=== PATIENT | female | born 1970 | race Asian ===

== ENCOUNTER 2021-08-16 06:13 | Day surgery (SDC) | payer OTHER ==
[~2021-08-16] VITALS: Ht 165.1 cm; Wt 53.3 kg
[2021-08-16] VITALS (8 sets, daily range): BP systolic 114–131; BP diastolic 57–82
[~2021-08-16 06:13] MED LIST: ACETAMINOPHEN *IV* 1,000 MG IV ONE; ESTR1TAB PO; GABAPENTIN 300 MG CAP PO ONE; LR 1,000 ML IV ONE; MELO15TA28 PO; PROG1CAP8 PO; PROT0.1O TOP; TRIA25CR TOP; ceFAZolin SOD 2 GM in IV 1 EA IV ONE
[2021-08-16 06:42] LABS: HEMATOCRIT 40.6 % (36.0-47.0); HEMOGLOBIN 13.5 g/dl (12.0-15.5); MEAN CORPUSCULAR HEMOGLOBIN 32.1 pg (27.0-33.0); MEAN CORPUSCULAR HGB CONC 33.3 g/dl (32.0-36.5); MEAN CORPUSCULAR VOLUME 96.4 fl (80.0-96.0); PLATELET COUNT, AUTOMATED 231 10^3/uL (150-450); RED BLOOD COUNT 4.21 10^6/uL (4.00-5.40); WHITE BLOOD COUNT 4.9 10^3/uL (4.0-10.0)
[2021-08-16 06:59] LABS: ALBUMIN 3.7 GM/DL (3.2-5.2); BLOOD UREA NITROGEN 14 MG/DL (7-18); CALCIUM LEVEL 9.3 MG/DL (8.5-10.1); CARBON DIOXIDE LEVEL 28 MEQ/L (21-32); CHLORIDE LEVEL 108 MEQ/L (98-107); CREATININE FOR GFR 0.75 MG/DL (0.55-1.30); GLOMERULAR FILTRATION RATE > 60.0 (>51); GLUCOSE, FASTING 92 MG/DL (70-100); PHOSPHORUS LEVEL 3.3 MG/DL (2.5-4.9); POTASSIUM SERUM 3.7 MEQ/L (3.5-5.1); SODIUM LEVEL 143 MEQ/L (136-145)
[2021-08-16 07:04] LABS: HCG, SERUM QUALITATIVE NEGATIVE (NEGATIVE)
[2021-08-16] MEDS ORDERED: ENOXAPARIN 40MG/0.4ML SYRINGE (J1650 PER 10MG) SC ONE (07:10)
[2021-08-16] MEDS ORDERED: BUPIVACAINE HCL 0.25% 30ML VIAL As Ordered ONE (07:12)
[2021-08-16] MEDS ORDERED: dexameTHASONE 4 MG/ML 1ML VIAL (J1100 PER 1MG) As Ordered ONE (07:56)
[2021-08-16] MEDS ORDERED: LIDOCAINE 2% 100MG/5ML SDV (FOR ANES.) As Ordered ONE (07:56)
[2021-08-16] MEDS ORDERED: fentaNYL 250 MCG/5 ML INJECTION As Ordered ONE (07:56)
[2021-08-16] MEDS ORDERED: ONDANSETRON 4MG/2ML VIAL As Ordered ONE (07:56)
[2021-08-16] MEDS ORDERED: propofoL 200 MG/20 ML VIAL As Ordered ONE (07:56)
[2021-08-16] MEDS ORDERED: ROCURONIUM BROMIDE 50 MG/5 ML VIAL As Ordered ONE (07:56)
[2021-08-16] MEDS ORDERED: MIDAZOLAM INJ 2MG/2ML VIAL (J2250 PER 1MG) As Ordered ONE (07:56)
[2021-08-16] MEDS ORDERED: ACETAMINOPHEN 1000MG 100ML IV BTL (OFIRMEV) (J0131 PER 10MG) As Ordered ONE (07:57)
[2021-08-16] MEDS ORDERED: HYDROmorphone HCL 2MG/ML 1ML VIAL As Ordered ONE (09:20)
[2021-08-16] MEDS ORDERED: SUGAMMADEX SODIUM 500 MG/5 ML VIAL (BRIDION) As Ordered ONE (09:53)
[2021-08-16] MEDS ORDERED: ePHEDrine SULFATE 25 MG/5 ML(5MG/ML) SYRINGE As Ordered ONE (10:09)
[2021-08-16] MEDS ORDERED: PHENYLephrine 500MCG 5ML (100MCG/ML) SYRINGE As Ordered ONE (10:09)
[2021-08-16] MEDS ORDERED: FLUORESCEIN 10% (100MG/ML) 5ML VIAL As Ordered ONE (10:13)
[2021-08-16] MEDS ORDERED: METHYLENE BLUE 0.5% (5MG/ML) 10 ML AMP (PROVAYBLUE) As Ordered ONE (10:16)
[2021-08-16] MEDS ORDERED: PROMETHAZINE 25MG/ML 1ML VIAL IV PRN (12:00)
[2021-08-16] MEDS ORDERED: ACETAMINOPHEN 500 MG TAB PO PRN (12:00)
[2021-08-16] MEDS ORDERED: oxyCODONE 5MG TAB PO PRN ×2 (12:00→12:15)
[2021-08-16] MEDS ORDERED: ONDANSETRON 4MG/2ML VIAL IV PRN ×2 (12:00→12:15)
[2021-08-16] MEDS ORDERED: LR 1,000 ML IV SCH (12:15)
[2021-08-16] MEDS ORDERED: METOCLOPRAMIDE INJ 10MG/2ML VIAL (J2765 PER 1) IV PRN (12:15)
[2021-08-16] MEDS ORDERED: HYDROMORPHONE HCL 0.5 MG/ 0.5 ML SYRINGE (J1170 PER 1) IV PRN (12:15)
[2021-08-16] MEDS ORDERED: fentaNYL 100 MCG/2 ML INJECTION IV PRN (12:15)
[2021-08-16] MEDS: LR 1,000 ML IV SCH ×2 (13:56→20:05)
[2021-08-16] MEDS: KETOROLAC 30 MG/ML 1ML VIAL IV SCH ×2 (13:56→19:36)
[2021-08-16] MEDS: ACETAMINOPHEN 500 MG TAB PO SCH (17:11)
[2021-08-16] MEDS: DOCUSATE SODIUM 100MG CAPSULE PO SCH (20:05)
[2021-08-16] MEDS: SENNA 8.6 MG TAB (SENOKOT) PO SCH (20:05)
[2021-08-17] MEDS: LR 1,000 ML IV SCH (00:37)
[2021-08-17] MEDS: KETOROLAC 30 MG/ML 1ML VIAL IV SCH ×2 (01:15→08:19)
[2021-08-17] MEDS: ACETAMINOPHEN 500 MG TAB PO SCH ×2 (01:16→08:19)
[2021-08-17 02:29] VITALS: BP 122/81
[2021-08-17 06:02] VITALS: BP 114/65
[2021-08-17 07:24] LABS: BASO % 0.2 % (0.0-1.0); EOS % 0.1 % (0.0-3.0); HEMATOCRIT 26.8 % (36.0-47.0); LYMPH # 1.9 10^3/uL (1.5-5.0); LYMPH % 17.3 % (24.0-44.0); MEAN CORPUSCULAR HEMOGLOBIN 32.4 pg (27.0-33.0); MEAN CORPUSCULAR VOLUME 95.4 fl (80.0-96.0); MONO % 9.2 % (2.0-8.0); NEUTROPHILS # 7.9 10^3/uL (1.5-8.5); NEUTROPHILS % 72.7 % (36.0-66.0); PLATELET COUNT, AUTOMATED 164 10^3/uL (150-450); RED BLOOD COUNT 2.81 10^6/uL (4.00-5.40); WHITE BLOOD COUNT 10.8 10^3/uL (4.0-10.0)
[2021-08-17 07:30] LABS: HEMOGLOBIN 9.1 g/dl (12.0-15.5)
[2021-08-17] MEDS: DOCUSATE SODIUM 100MG CAPSULE PO SCH (08:19)
[2021-08-17] MEDS: SENNA 8.6 MG TAB (SENOKOT) PO SCH (08:19)
[2021-08-17 10:00] VITALS: BP 111/76
[2021-08-17] MEDS ORDERED: ONDA4TAB6 PO (13:56)
[2021-08-17] MEDS ORDERED: IBUPROFEN 800 MG TAB PO SCH (15:00)
== END 2021-08-17 14:41 | disposition home or self-care (01) ==
LOC: M SDC 06:13 → ENRESERV 12:11 → M MSPAV 13:47 → M SDC 08-17 14:41
PROVIDERS: ATTEND Obstetrics & Gynecology
DX: D25.9 Leiomyoma of uterus, unspecified (principal); N80.0 Endometriosis of uterus; Z53.31 Laparoscopic surgical procedure converted to open procedure; N99.71 Accidental puncture and laceration of a genitourinary system organ or structure during a genitourinary system procedure; M54.9 Dorsalgia, unspecified; Z79.890 Hormone replacement therapy
CPT/HCPCS: 36415; 58150; 80069; 84703; 85025; 85027; 86850; 86900; 86901; 88307; 93005; J0131; J0690; J1100; J1170; J1650; J1885; J2250; J2370; J2405; J3010; Q9968